=== PATIENT | male | born 1960 | race American Indian/Alaskan Native ===

== ENCOUNTER 2022-06-07 20:31 | Emergency (ER) | payer MEDICAID ==
[2022-06-07] MEDS ORDERED: SODIUM CHLORIDE 0.9% 1000 ML 1,000 ML IV ONE (21:36)
--- NOTE | 2022-06-07 21:56 | Emergency Department Report ---
ED Alcohol HPI - General Chief Complaint: Alcohol Stated Complaint: FALL INJURY/ALCOHOL ABUSE Time Seen by Provider: 06/07/22 21:20 Source: EMS Mode of arrival: Stretcher Limitations: No Limitations - History of Present Illness Initial Comments: 62 yo alcoholic male brought in intoxicated with fall associated with abrasion and laceration for forehead. History is very limited due to intoxication. No other modifying or associated factors reported. MD Complaint: alcohol intoxication - Related Data Previous Rx's Medication Instructions Recorded Last Taken Type Ketorolac [Toradol] 10 mg PO Q6H PRN 3 Days #12 tab NS 06/08/22 Unknown Rx Allergies Allergy/AdvReac Type Severity Reaction Status Date / Time No Known Allergies Allergy Unverified 06/07/22 20:54 ED Review of Systems ROS: Stated complaint: FALL INJURY/ALCOHOL ABUSE Other details as noted in HPI Comment: All other systems reviewed and negative Skin: other (laceration skin to forehead ) Psychiatric: other (alcohol intoxication ) ED Past Medical Hx - Past Medical History Previous Medical History?: Yes Hx Seizures: Yes Hx Psychiatric Treatment: Yes (ETOH ABUSE) - Surgical History Past Surgical History?: No - Social History Smoking Status: Current Every Day Smoker Substance Use Type: Alcohol - Medications Home Medications: Home Medications Medication Instructions Recorded Confirmed Last Taken Type Ketorolac [Toradol] 10 mg PO Q6H PRN 3 Days #12 tab NS 06/08/22 Unknown Rx ED Physical Exam - General Limitations: Other (alcohol intoxication ) General appearance: in no apparent distress, appears intoxicated, other (deshaved ) - Head Head exam: Present: other (laceration and abrasion to forehead ) - Eye Eye exam: Present: normal appearance - ENT ENT exam: Present: mucous membranes dry - Neck Neck exam: Present: other (C collar in place ) - Respiratory Respiratory exam: Present: normal lung sounds bilaterally. Absent: respiratory distress, accessory muscle use - Cardiovascular Cardiovascular Exam: Present: regular rate, normal rhythm, normal heart sounds - GI/Abdominal GI/Abdominal exam: Present: soft, normal bowel sounds. Absent: distended, tenderness - Extremities Exam Extremities exam: Present: normal capillary refill. Absent: tenderness - Back Exam Back exam: Absent: tenderness - Neurological Exam Neurological exam: Present: other (alcohol intoxciation ) - Skin Skin exam: Present: warm, dry ED Course Vital Signs 06/07/22 06/07/22 06/07/22 20:55 23:28 23:29 Temperature 98 F 97.9 F Pulse Rate 90 81 98 H Respiratory 18 20 14 Rate Blood Pressure 130/71 Blood Pressure 127/80 [Left] O2 Sat by Pulse 98 97 98 Oximetry 06/07/22 06/07/22 06/07/22 23:30 23:46 23:49 Temperature Pulse Rate 79 77 77 Respiratory 18 17 17 Rate Blood Pressure 139/80 132/85 139/80 Blood Pressure [Left] O2 Sat by Pulse 94 99 95 Oximetry 06/08/22 06/08/22 06/08/22 00:00 00:04 00:16 Temperature Pulse Rate 82 85 82 Respiratory 18 18 17 Rate Blood Pressure 132/85 132/85 139/80 Blood Pressure [Left] O2 Sat by Pulse 98 98 97 Oximetry 06/08/22 06/08/22 06/08/22 00:30 00:46 01:00 Temperature Pulse Rate 85 85 86 Respiratory 20 20 19 Rate Blood Pressure 139/80 110/71 110/71 Blood Pressure [Left] O2 Sat by Pulse 95 95 95 Oximetry 06/08/22 06/08/22 06/08/22 01:16 01:30 01:46 Temperature Pulse Rate 85 84 87 Respiratory 23 21 21 Rate Blood Pressure 119/79 119/79 128/75 Blood Pressure [Left] O2 Sat by Pulse 96 95 95 Oximetry 06/08/22 06/08/22 06/08/22 02:00 02:16 02:30 Temperature Pulse Rate 89 82 87 Respiratory 11 L 17 20 Rate Blood Pressure 128/75 122/81 128/75 Blood Pressure [Left] O2 Sat by Pulse 96 98 97 Oximetry 06/08/22 06/08/22 06/08/22 02:46 03:00 03:16 Temperature Pulse Rate 85 80 89 Respiratory 17 22 Rate Blood Pressure 122/81 125/79 Blood Pressure [Left] O2 Sat by Pulse 96 96 Oximetry 06/08/22 06/08/22 03:30 03:46 Temperature Pulse Rate 93 H 99 H Respiratory 20 16 Rate Blood Pressure 125/79 132/72 Blood Pressure [Left] O2 Sat by Pulse 95 97 Oximetry ED Medical Decision Making - Lab Data Result diagrams: 06/07/22 21:56 06/07/22 21:56 - Radiology Data FINDINGS: CT images of the facial bones were obtained. Images are evaluated in the axial, coronal, and sagittal planes. There is focal soft tissue swelling of the left frontal scalp, overlying the left frontal sinus. There is focal depression of the anterior wall of the left frontal sinus, which may be due to focal fracture or penetrating injury. There is no evidence of fluid or hemorrhage within the frontal sinus,. Facial osseous structures are otherwise intact. IMPRESSION: Left frontal scalp swelling with underlying irregularity along the anterior wall of the left frontal sinus, consistent with small depressed fracture of indeterminate age. - Medical Decision Making alcohol intoxication with laceration and abrasion to forehead-- will go ahead and hydrate with ivf ns bolus and order routine labs including CBC, CMP and UA with UDS -- and other CT head, facial and cervical to rule out fracture or dislocation considering that this patient is drunk and might not remember or feel EtOH noted to be 0.27 mg/dl and noted with unremarkable other labs CT facial noted with age indeterminant small depressed fracture of the left frontal sinus-- given ancef 1 g prophylactic Abrasion and small laceration bandaged Pt woke up around 4 AM and asked for water and wanted to be discharge home-- Critical care attestation.: If time is entered above; I have spent that time in minutes in the direct care of this critically ill patient, excluding procedure time. ED Disposition Clinical Impression: Alcohol intoxication Qualifiers: Complication of substance-induced condition: with unspecified complication Qualified Code(s): F10.929 - Alcohol use, unspecified with intoxication, unspecified Laceration of eyebrow and forehead Qualifiers: Encounter type: initial encounter Laterality: right Qualified Code(s): S01.81XA - Laceration without foreign body of other part of head, initial encounter Facial fracture due to fall Qualifiers: Encounter type: initial encounter Fracture type: open Qualified Code(s): S02.92XB - Unspecified fracture of facial bones, initial encounter for open fracture Disposition: 01 HOME / SELF CARE / HOMELESS Is pt being admited?: No Does the pt Need Aspirin: No Condition: Stable Instructions: Wound Care, Adult, Laceration Care, Adult, [id number], Nonsutured Laceration Care Additional Instructions: Abstain from excessive alcohol drink for your overall health Increase your daily fluid to help your hydration Call and follow-up with your primary doctor in the next 3 to 5 days for progress Please do not hesitate to call or return to emergency if your symptoms worsen Follow the printed instruction as highlighted Prescriptions: Ketorolac [Toradol] 10 mg PO Q6H PRN 3 Days #12 tab NS PRN Reason: Pain Referrals: [facility] [Referring] - 3-5 Days Time of Disposition: 04:39
--- NOTE | 2022-06-07 22:06 | Cat Scan Report ---
CT BRAIN: 06/07/2022 INDICATION / CLINICAL INFORMATION: Alcohol Intoxication. COMPARISON: None available. FINDINGS: BRAIN/INTRACRANIAL STRUCTURES: Unenhanced CT images of the brain demonstrate no evidence of acute int racranial abnormality. Ventricles and sulci are prominent in size, consistent with prominent diffuse cerebral atrophy for a ge. There is no evidence of acute ischemic injury, hemorrhage, or mass. There are no abnormal extra-axial fluid collections. Soft tissue swelling is present overlying the left frontal scalp. In this area, there is a focal inva gination/fracture of the anterior wall of the left frontal sinus. There is no evidence of fluid or he morrhage within the paranasal sinuses. EXTRACRANIAL STRUCTURES: Unremarkable. IMPRESSION: 1. No evidence of acute intracranial abnormality. 2. Prominent diffuse cerebral atrophy. 3. Probable focal depressed fracture of the anterior wall of the left frontal sinus. All CT scans at this location are performed using dose reduction to ALARA by means of automated expos ure control. Signer Name: Oren Martines MD Signed: 06/07/2022 10:02 PM Workstation Name: [id number]
--- NOTE | 2022-06-07 22:08 | Cat Scan Report ---
CT FACIAL 06/07/2022 HISTORY: Alcohol Intoxication. FINDINGS: CT images of the facial bones were obtained. Images are evaluated in the axial, coronal, an d sagittal planes. There is focal soft tissue swelling of the left frontal scalp, overlying the left frontal sinus. Ther e is focal depression of the anterior wall of the left frontal sinus, which may be due to focal fract ure or penetrating injury. There is no evidence of fluid or hemorrhage within the frontal sinus,. Facial osseous structures are otherwise intact. IMPRESSION: Left frontal scalp swelling with underlying irregularity along the anterior wall of the l eft frontal sinus, consistent with small depressed fracture of indeterminate age. All CT scans at this location are performed using dose reduction to ALARA by means of automated expos ure control. Signer Name: Oren Martines MD Signed: 06/07/2022 10:03 PM Workstation Name: [id number]
[2022-06-07 22:40] LABS: Basophils # (Auto) 0.1 K/mm3 (0.0-0.1); Basophils % (Auto) 0.8 % (0.0-1.8); Eosinophils % (Auto) 0.5 % (0.0-4.3); Hematocrit 38.9 % (35.5-45.6); Hemoglobin 13.3 gm/dl (11.8-15.2); Lymphocytes # (Auto) 2.6 K/mm3 (1.2-5.4); Lymphocytes % (Auto) 38.1 % (13.4-35.0); Mean Corpuscular HGB Conc 34 % (32-34); Mean Corpuscular Volume 92 fl (84-94); Monocytes # (Auto) 0.6 K/mm3 (0.0-0.8); Monocytes % (Auto) 8.5 % (0.0-7.3); Platelet Count 268 K/mm3 (140-440); Red Blood Count 4.23 M/mm3 (3.65-5.03); Red Cell Distribution Width 16.1 % (13.2-15.2)
[2022-06-07 22:48] LABS: Color,Urine Straw (Yellow)
[2022-06-07 22:51] LABS: Alanine Aminotransferase 17 units/L (7-56); Albumin 4.3 g/dL (3.9-5); Blood Urea Nitrogen 8 mg/dL (9-20); Calcium 8.9 mg/dL (8.4-10.2); Hemolysis Index 3
[2022-06-07 22:54] LABS: Bacteria,Urine 1+ /HPF (Negative); Hyaline Casts,Urine 1 /LPF; Mucus,Urine FEW /HPF
[2022-06-07 22:55] LABS: Amphetamine Screen,Urine PRESUMPTIVE NEGATIVE; Benzodiazepines Screen,Urine PRESUMPTIVE NEGATIVE; Cannabinoid Screen,Urine PRESUMPTIVE NEGATIVE; Cocaine Screen,Urine PRESUMPTIVE NEGATIVE; Methadone Screen,Urine PRESUMPTIVE NEGATIVE; Opiate Screen,Urine PRESUMPTIVE NEGATIVE
[2022-06-07 23:05] LABS: BUN/Creatinine Ratio 11
[2022-06-07 23:07] LABS: INR 0.83 (0.87-1.13)
[2022-06-08] MEDS ORDERED: POTASSIUM CHLORIDE ER 20 MEQ TAB PO ONE (01:25)
[2022-06-08] MEDS ORDERED: ceFAZolin 1 GM VIAL IM ONE (01:28)
[2022-06-08] MEDS ORDERED: ceFAZolin/NS 1 GM/50 ML 1 GM/50 ML BAG IV ONE (02:04)
--- NOTE | 2022-06-08 03:03 | Cat Scan Report ---
CT cervical spine wo con INDICATION / CLINICAL INFORMATION: trauma. TECHNIQUE: Axial CT imaging of the cervical spine was obtained without contrast. Coronal and sagittal reformatte d imaging obtained and reviewed. All CT scans at this location are performed using CT dose reduction for ALARA by means of automated exposure control. COMPARISON: None available. FINDINGS: No evidence of cervical spine fracture or traumatic malalignment. There is multilevel degenerative di sc disease primarily affecting C3-C6. Prominent anterior osteophytes are seen in the mid cervical spi ne. Moderate spondylitic change noted throughout the mid and lower cervical spine. Paravertebral soft tissues are unremarkable. Visualized lung apices do not demonstrate acute pulmonary or pleural disease. Several small blebs are incidentally noted in the lung apices. IMPRESSION: 1. No cervical spine fracture or traumatic malalignment noted. 2. Multilevel degenerative disc disease with prominent spondylitic change. Signer Name: Macy Israel MD Signed: 06/08/2022 2:59 AM Workstation Name: [id number]
[2022-06-08 05:18] VITALS: BP 137/83
== END 2022-06-08 05:24 | disposition home or self-care (01) ==
LOC: ED 20:31
DX: S01.81XA Laceration without foreign body of other part of head, initial encounter (principal); S02.92XA Unspecified fracture of facial bones, initial encounter for closed fracture; F10.129 Alcohol abuse with intoxication, unspecified; R56.9 Unspecified convulsions; F17.200 Nicotine dependence, unspecified, uncomplicated; W19.XXXA Unspecified fall, initial encounter; Y93.89 Activity, other specified; Y92.89 Other specified places as the place of occurrence of the external cause; Y99.8 Other external cause status
CPT/HCPCS: 36415; 70450; 70486; 72125; 80053; 80307; 81001; 83690; 85025; 85610; 85730; 96361; 96365; 99285; J0690; J7030; 80320; G0480